=== PATIENT | female | born 1940 | race Caucasian/White ===

== ENCOUNTER 2024-04-26 11:42 | Day surgery (SDC) | payer MEDICARE, OTHER ==
[~2024-04-26] VITALS: Ht 147.3 cm; Wt 45.9 kg
[~2024-04-26 11:42] MED LIST: ALBU18HF2; ATOR40TA72 PO; FENO160T PO; KEN0.1O TOP; LEVO50TA8 PO; SERT-434 PO; TRAZ150T78 PO
[2024-04-26] MEDS ORDERED: fentaNYL/PF 50MCG/1 ML 2ML syringe ONE (12:09)
[2024-04-26 12:10] VITALS: BP 149/40; PULSE 82; RESP 17
[2024-04-26] MEDS ORDERED: midazolam 1 mg/ML 2ml injection ONE (12:10)
[2024-04-26] MEDS ORDERED: simethicone 40mg/0.6ml oral drops 30ml ONE (12:16)
[2024-04-26] MEDS ORDERED: LIDOcaine 2% (20mg/ml) 5ml vial ONE (12:16)
[2024-04-26] MEDS ORDERED: propofol inj 20 ML IV ONE (12:16)
[2024-04-26 12:55] VITALS: BP 134/54; PULSE 84; RESP 18; O2SAT 96
[2024-04-26 13:05] VITALS: BP 135/60; PULSE 79; RESP 16; O2SAT 97
[2024-04-26 13:15] VITALS: BP 141/58; PULSE 82; RESP 16; O2SAT 94
[2024-04-26 13:25] VITALS: BP 142/80; PULSE 80; RESP 16; O2SAT 94
== END 2024-04-26 13:45 | disposition home or self-care (01) ==
LOC: GI LAB 11:42
PROVIDERS: ATTEND Internal Medicine Gastroenterology
DX: R19.4 Change in bowel habit (principal); R63.4 Abnormal weight loss; K57.30 Diverticulosis of large intestine without perforation or abscess without bleeding; K29.70 Gastritis, unspecified, without bleeding; K29.80 Duodenitis without bleeding; I10 Essential (primary) hypertension; J45.909 Unspecified asthma, uncomplicated; Z68.21 Body mass index [BMI] 21.0-21.9, adult
CPT/HCPCS: 43239; 45378; A4620; J2001; J2250; J2704; J3010; J7030; Z7512; 88305; J3490